=== PATIENT | male | born 1970 | race Caucasian/White ===

== ENCOUNTER 2018-12-19 06:21 | Emergency (ER) | payer MEDICAID ==
[~2018-12-19] VITALS: Ht 170.2 cm; Wt 70.0 kg
[~2018-12-19 06:21] MED LIST: CLON-412 PO; HYDR25TA6 PO; LISI40TA3 PO; OXYC-281 PO; PANT40TA3 PO
[2018-12-19 06:24] VITALS: BP 178/115; PULSE 107; RESP 20; Ht 170.2 cm; Wt 70.0 kg
[2018-12-19] MEDS ORDERED: ONDANSETRON 4 MG INJ IV STA (06:28)
[2018-12-19] MEDS ORDERED: ONDANSETRON (ODT) 4 MG TAB ODT STA (06:49)
[2018-12-19] MEDS ORDERED: HYDROCODONE/APAP (10/325) TAB PO ONE (07:00)
[2018-12-19] MEDS ORDERED: ONDA4TAB14 PO (08:07)
--- NOTE | 2018-12-19 08:08 | ERD ---
ER Documentation Chief Complaint Chief Complaint abdominal pain with nausea HPI Patient is a 48-year-old male with a history of hypertension and diverticulitis who presents with abdominal pain. He was brought in by ambulance. He admits to nausea and vomiting but no blood. Patient has had abdominal pain for the past 2 days. He feels like it in the left lower quadrant. He has bilateral feet swelling with the right being more swollen than the left. He feels like this could be previous diverticulitis. He said the pain is constant and stabbing. He has no fevers. He has diarrhea but no blood. He has had no treatment as of yet. Upon review of old medical records this is the patient's sixth visit to the ER since 2012. Review of the emergency department information exchange system shows visits to 3 separate emergency departments for a total of 10 visits over the past 1 year. He said that his primary doctor is a [facility] and he does have a GI doctor but does not remember the name. ROS All systems reviewed and are negative except as per history of present illness. Medications Home Meds Active Scripts Ondansetron (Ondansetron Odt) 4 Mg Tab.rapdis, 4 MG PO Q6H PRN for NAUSEA AND/OR VOMITING, #10 TAB Prov:JULIA SOLIS MD 12/19/18 Oxycodone Hcl-Acetaminophen* (Percocet*) 5-325 Mg Tablet, 1 TAB PO Q4H PRN for PAIN, #6 TAB Prov:NA COFFMAN MD 12/04/14 Oxycodone Hcl-Acetaminophen* (Percocet*) 5-325 Mg Tablet, 1 TAB PO Q4H PRN for PAIN, #6 TAB Prov:NA COFFMAN MD 12/04/14 Reported Medications Pantoprazole* (Protonix*) 40 Mg Tablet.dr, 40 MG PO DAILY, TAB 12/04/14 Lisinopril* (Lisinopril*) 40 Mg Tablet, 40 MG PO DAILY, TAB 12/04/14 Clonazepam* (Klonopin*) 1 Mg Tablet, 1 MG PO TID, TAB 12/04/14 Hydrochlorothiazide* (Hydrochlorothiazide*) 25 Mg Tab, 25 MG PO DAILY, TAB 08/04/14 Allergies Allergies: Coded Allergies: ketorolac tromethamine (Verified Allergy, Severe, ANAPHYLAXIS, 7/14/15) morphine (Verified Allergy, Severe, ANAPHYLAXIS, 12/04/14) PMhx/Soc History of Surgery: Yes (BOWEL RESECTION,HERNIA REPAIR,APPENDECTOMY) Anesthesia Reaction: No Hx Neurological Disorder: No Hx Respiratory Disorders: No Hx Cardiac Disorders: Yes (HTN) Hx Psychiatric Problems: No Hx Miscellaneous Medical Probl: No Hx Alcohol Use: No Hx Substance Use: No Hx Tobacco Use: Yes Smoking Status: Current every day smoker FmHx Family History: No diabetes Physical Exam Vitals Vital Signs Date Temp Pulse Resp B/P (MAP) Pulse Ox O2 O2 Flow FiO2 Time Delivery Rate 12/19/18 98.1 107 20 178/115 94 06:24 (136) Physical Exam Const: Mild distress secondary to pain Head: Atraumatic Eyes: Normal Conjunctiva ENT: Normal External Ears, Nose and Mouth. Neck: Full range of motion. No meningismus. Resp: Clear to auscultation bilaterally Cardio: Regular rate and rhythm, no murmurs Abd: Soft, lower quadrant tenderness to palpation without rebound or guarding Skin: No petechiae or rashes Back: No midline or flank tenderness Ext: 1+ pitting edema on the right no edema on the left lower extremity Neur: Awake and alert Psych: Normal Mood and Affect Result Diagram: 12/19/18 0650 12/19/18 0650 Results 24 hrs Laboratory Tests Test 12/19/18 06:50 White Blood Count 5.8 10^3/ul Red Blood Count 5.19 10^6/ul Hemoglobin 15.2 g/dl Hematocrit 46.0 % Mean Corpuscular Volume 88.6 fl Mean Corpuscular Hemoglobin 29.3 pg Mean Corpuscular Hemoglobin Concent 33.0 g/dl Red Cell Distribution Width 14.1 % Platelet Count 271 10^3/UL Mean Platelet Volume 10.7 fl Immature Granulocytes % 0.300 % Neutrophils % 65.6 % Lymphocytes % 22.5 % Monocytes % 9.6 % Eosinophils % 1.5 % Basophils % 0.5 % Nucleated Red Blood Cells % 0.0 /100WBC Immature Granulocytes # 0.020 10^3/ul Neutrophils # 3.8 10^3/ul Lymphocytes # 1.3 10^3/ul Monocytes # 0.6 10^3/ul Eosinophils # 0.1 10^3/ul Basophils # 0.0 10^3/ul Nucleated Red Blood Cells # 0.0 10^3/ul Sodium Level 144 mmol/L Potassium Level 4.0 mmol/L Chloride Level 107 mmol/L Carbon Dioxide Level 24 mmol/L Anion Gap 13 Blood Urea Nitrogen 16 mg/dl Creatinine 0.92 mg/dl Est Glomerular Filtrat Rate mL/min > 60 mL/min Glucose Level 105 mg/dl Calcium Level 10.8 mg/dl Total Bilirubin 1.1 mg/dl Direct Bilirubin 0.00 mg/dl Indirect Bilirubin 1.1 mg/dl Aspartate Amino Transf (AST/SGOT) 47 IU/L Alanine Aminotransferase (ALT/SGPT) 44 IU/L Alkaline Phosphatase 81 IU/L Troponin I 0.043 ng/ml Total Protein 8.2 g/dl Albumin 4.5 g/dl Globulin 3.70 g/dl Albumin/Globulin Ratio 1.21 Lipase 20 U/L Current Medications Medications Dose Sig/Castillo Start Time Status Last (Trade) Ordered Route PRN Stop Time Admin Dose Reason Admin Ondansetron 4 mg ONCE STAT 12/19/18 DC HCl (Zofran IV 06:28 Inj) 12/19/18 06:29 1 tab ONCE ONCE 12/19/18 DC Acetaminophen PO 07:00 / 12/19/18 07:01 Hydrocodone Bitart (Bryant (10)) Ondansetron 4 mg ONCE STAT 12/19/18 DC 12/19/18 HCl (Zofran ODT 06:49 06:57 Odt) 12/19/18 06:50 Procedures/MDM EKG read by me: Rate/Rhythm: Sinus tachycardia rate of 106 Intervals: Normal Impression: Tachycardia without ischemia Ultrasound of the right lower extremity negative for DVT per radiology. CT scan of the abdomen pelvis shows no surgical process per radiology. Chest x-ray negative per radiology. Smoking Cessation Therapy: Pt. was lectured for greater than 3 minutes on the health risks of continued smoking and the benefits of cessation. Patient is a 48-year-old male who presents with acute on chronic abdominal pain. He also has nausea and vomiting. He said he was allergic to Toradol and morphine but did request Dilaudid. I told him that per our chronic pain policy I would not give him IV Dilaudid and he became upset. He said that Bryant would not work for him. Laboratory studies were normal. EKG shows no signs of ischemia. Ultrasound was negative for DVT. CT scan of the abdomen pelvis shows no signs of diverticulitis or obstruction. Chest x-ray shows no signs of pulmonary edema. At this point I doubt appendicitis, cholecystitis, pancreatiti s, or bowel obstruction. I doubt diverticulitis. The patient will be discharged will need to follow-up with his primary doctor at [facility] within 24 to 48 hours for reevaluation. He can return sooner for any worsening symptoms. I do believe there may be an element of drug-seeking behavior and I will not give him any prescriptions for narcotic medicines. He will be given a prescription for Zofran. Patient was provided with copies of laboratory studies and imaging test results prior to discharge. Departure Diagnosis: Primary Impression: Abdominal pain Abdominal location: left lower quadrant Qualified Codes: R10.32 - Left lower quadrant pain Condition: Fair Patient Instructions: Abdominal Pain Referrals: Your doctor at [facility] Additional Instructions: Call your primary care doctor TOMORROW for an appointment during the next 1-2 days.See the doctor sooner or return here if your condition worsens before your appointment time. JULIA SOLIS MD Dec 19, 2018 08:08
[2018-12-21] MEDS ORDERED: POLY17PO6 PO (23:45)
== END 2018-12-19 09:29 | disposition home or self-care (01) ==
LOC: E/R 06:21
DX: R10.32 Left lower quadrant pain (principal); I10 Essential (primary) hypertension; F17.210 Nicotine dependence, cigarettes, uncomplicated; R11.0 Nausea
CPT/HCPCS: 71045; 74176; 80053; 83690; 84484; 85025; 93005; 93971; Z7610; 36415

== ENCOUNTER 2018-12-20 06:29 | Emergency (ER) | payer MEDICAID, OTHER ==
[~2018-12-20] VITALS: Ht 170.2 cm; Wt 80.0 kg
[~2018-12-20 06:29] MED LIST changes: +ONDA4TAB14 PO; +POLY17PO6 PO
[2018-12-20 06:32] VITALS: Ht 170.2 cm; Wt 80.0 kg
[2018-12-20] MEDS ORDERED: LORAZEPAM 1 MG TAB PO ONE (07:00)
[2018-12-20 08:40] VITALS: BP 120/78; PULSE 84; RESP 18
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
== END 2018-12-20 09:32 | disposition home or self-care (01) ==
LOC: E/R 06:29
DX: F15.10 Other stimulant abuse, uncomplicated (principal); I10 Essential (primary) hypertension; R40.2142 Coma scale, eyes open, spontaneous, at arrival to emergency department; R40.2362 Coma scale, best motor response, obeys commands, at arrival to emergency department; Z87.891 Personal history of nicotine dependence
CPT/HCPCS: 99283

== ENCOUNTER 2018-12-20 11:32 | Emergency (ER) | payer MEDICAID, OTHER ==
[~2018-12-20] VITALS: Ht 157.5 cm; Wt 63.7 kg
[2018-12-20 11:42] VITALS: BP 135/62; PULSE 103; RESP 18; Ht 157.5 cm; Wt 63.7 kg
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
== END 2018-12-20 13:19 | disposition home or self-care (01) ==
LOC: E/R 11:32
DX: F15.10 Other stimulant abuse, uncomplicated (principal); I10 Essential (primary) hypertension; Z87.891 Personal history of nicotine dependence
CPT/HCPCS: 99283

== ENCOUNTER 2018-12-21 20:20 | Emergency (ER) | payer MEDICAID, OTHER ==
[~2018-12-21] VITALS: Ht 162.6 cm; Wt 65.0 kg
[2018-12-21 20:30] VITALS: Ht 162.6 cm; Wt 65.0 kg
[2018-12-21] MEDS ORDERED: ONDANSETRON (ODT) 4 MG TAB ODT STA (22:58)
[2018-12-21] MEDS ORDERED: BELLADONNA/PHENOBARBITAL TAB PO STA (22:58)
[2018-12-21] MEDS ORDERED: LIDOCAINE/MYLANTA 40 ML BTL PO STA (22:58)
[2018-12-21] MEDS ORDERED: FAMOTIDINE 20 MG TAB PO STA (22:58)
[2018-12-21] MEDS ORDERED: DICYCLOMINE 20 MG INJ IM ONE (23:00)
--- NOTE | 2018-12-21 23:44 | ERD ---
ER Documentation Chief Complaint Chief Complaint bib ra 81 c/o on and off abd pain x 1 month HPI This is a 48-year-old male with a past medical history of methamphetamine abuse, chronic abdominal pain, diverticulosis with diverticulitis, 3 previous emergency department visits for similar abdominal pain with negative work-ups, now presenting with another exacerbated episode of moderate general cramping aching abdominal pain with nausea. The patient reports that his symptoms have been ongoing for a month. The patient does not endorse any alleviating or exacerbating factors. He does not know if it is associated with food or not. He does not endorse constipation or diarrhea. He does not endorse black or bloody or tarry stools. He does not endorse dysuria or hematuria or urgency or frequency. The patient has not vomited today. The patient denies fever or chills. The patient has had no headache or vision changes. The patient does not endorse neck or back pain. The patient denies lightheadedness or dizziness. The patient has had no chest pain or trouble breathing. The patient has had no focal deficits. The patient has had no weakness or numbness or tingling to the face or extremities. ROS All systems reviewed and are negative except as per history of present illness. Medications Home Meds Active Scripts Ondansetron (Ondansetron Odt) 4 Mg Tab.rapdis, 4 MG PO Q6H PRN for NAUSEA AND/OR VOMITING, #10 TAB Prov:JULIA SOLIS MD 12/19/18 Oxycodone Hcl-Acetaminophen* (Percocet*) 5-325 Mg Tablet, 1 TAB PO Q4H PRN for PAIN, #6 TAB Prov:NA COFFMAN MD 12/04/14 Oxycodone Hcl-Acetaminophen* (Percocet*) 5-325 Mg Tablet, 1 TAB PO Q4H PRN for PAIN, #6 TAB Prov:NA COFFMAN MD 12/04/14 Reported Medications Pantoprazole* (Protonix*) 40 Mg Tablet.dr, 40 MG PO DAILY, TAB 12/04/14 Lisinopril* (Lisinopril*) 40 Mg Tablet, 40 MG PO DAILY, TAB 12/04/14 Clonazepam* (Klonopin*) 1 Mg Tablet, 1 MG PO TID, TAB 12/04/14 Hydrochlorothiazide* (Hydrochlorothiazide*) 25 Mg Tab, 25 MG PO DAILY, TAB 08/04/14 Allergies Allergies: Coded Allergies: ketorolac tromethamine (Verified Allergy, Severe, ANAPHYLAXIS, 12/04/14) morphine (Verified Allergy, Severe, ANAPHYLAXIS, 12/04/14) PMhx/Soc History of Surgery: Yes (BOWEL RESECTION,HERNIA REPAIR,APPENDECTOMY) Anesthesia Reaction: No Hx Neurological Disorder: No Hx Respiratory Disorders: No Hx Cardiac Disorders: Yes (HTN) Hx Psychiatric Problems: No Hx Miscellaneous Medical Probl: No Hx Alcohol Use: No Hx Substance Use: No Hx Tobacco Use: Yes Smoking Status: Current every day smoker FmHx Family History: No diabetes Physical Exam Vitals Vital Signs Date Temp Pulse Resp B/P (MAP) Pulse Ox O2 O2 Flow FiO2 Time Delivery Rate 12/21/18 99.2 98 18 146/101 96 23:08 (116) 12/21/18 99.2 71 18 143/94 96 20:30 (110) Physical Exam Const: No acute distress Head: Atraumatic Eyes: Normal Conjunctiva ENT: Normal External Ears, Nose. Dry mucous membranes. Neck: Full range of motion. No meningismus. Resp: Clear to auscultation bilaterally Cardio: Regular rate and rhythm, no murmurs Abd: Soft, non distended. Left lower quadrant tenderness, mild. No guarding or rebound. Normal bowel sounds Skin: No petechiae or rashes Back: No midline or flank tenderness Ext: No cyanosis, or edema Neur: Awake and alert Psych: Anxious Results 24 hrs Current Medications Medications Dose Sig/Castillo Start Time Status Last (Trade) Ordered Route PRN Stop Time Admin Dose Reason Admin Famotidine 20 mg ONCE STAT 12/21/18 DC 12/21/18 (Pepcid) PO 22:58 23:04 12/21/18 23:00 40 ml ONCE STAT 12/21/18 DC 12/21/18 Miscellaneous PO 22:58 23:04 Medication 12/21/18 23:00 (Gi Cocktail (2)) Belladonna/ 2 tab ONCE STAT 12/21/18 DC 12/21/18 Phenobarbital PO 22:58 23:04 () 12/21/18 23:00 Dicyclomine 10 mg ONCE ONCE 12/21/18 DC HCl IM 23:00 (Bentyl) 12/21/18 23:01 Ondansetron 8 mg ONCE STAT 12/21/18 DC 12/21/18 HCl (Zofran ODT 22:58 23:06 Odt) 12/21/18 23:01 Procedures/[facility] MDM Previous medical records, if available, were reviewed. LABS The patient's laboratory testing reviewed from 12/19/2018. No emergent treatment was required unless described below. CBC: No E/o systemic infection or severe anemia or thrombocytopenia Chemistry: No E/o severe acidosis or alkalosis or renal failure or liver disease or diabetic ketoacidosis Lipase: No E/o pancreatitis Troponin: No E/o acute ischemia EKG EKG from 12/19/2018 reviewed by me: Rate/Rhythm: Sinus tachycardia at 106 bpm Intervals: Normal [place]: Normal Impression: No evidence of acute ischemia. This tachycardia IMAGING Imaging and Radiology interpretation reviewed from 12/19/2018. CXR FINDINGS: The patient is mildly tilted to the left. The cardiomediastinal silhouette is within normal limits. There is no evidence for an infiltrate. There is no evidence for congestive heart failure. There is no evidence for pneumothorax. There are old right posterior fifth, sixth and seventh rib fracture deformities. IMPRESSION: 1. No evidence for active cardiopulmonary disease. 2. Old posterior right rib fracture deformities. Electronically viewed and signed by Dom Newman MD, MD on 12/19/2018 08:02 US BLE FINDINGS: There is normal compressibility and flow within the right common femoral, deep femoral, superficial femoral, popliteal, posterior tibial and peroneal veins. IMPRESSION: No sonographic evidence for right lower extremity deep venous thrombosis. Electronically viewed and signed by .Dom Newmna MD, MD on 12/19/2018 07:40 CT Abd/Pelvis FINDINGS: There are minimal focal blebs and scarring within the right lung base without interval change. There is no evidence for significant pleural effusion. The liver has a normal size and contour. There is a small punctate hepatic calcification within the posterior segment right lobe on axial image 3-47. No intrahepatic nor extrahepatic biliary ductal dilatation is seen. The gallbladder demonstrates no wall thickening nor pericholecystic fluid. No biliary stones are evident. The pancreas is without areas of abnormal attenuation. The spleen is identified and has a normal size without abnormal density. The adrenal glands are unremarkable. The right kidney is markedly atrophic as previously identified. The left kidney is without abnormal density, calculi or obstruction. No hydroureteronephrosis nor nephroureterolithiasis is evident. The urinary bladder contains urine. There is a mesh identified within the ventral abdominal wall from prior hernia repair. An anastomotic teri are seen within the sigmoid colon region from prior resection. There is mild retained stool identified throughout the colon without evidence for bowel obstruction. The appendix is visualized and is without abnormal thickening or surrounding inflammatory reaction. The prostate is not enlarged. There is no significant free fluid. The aortoiliac vessels are without aneurysmal dilatation. The osseous structures are intact. IMPRESSION: 1. Prior sigmoid resection with retained stool throughout the colon without obstruction. 2. Ventral abdominal wall mesh from prior hernia repair. 3. No CT evidence for appendicitis. 4. Atrophic right kidney. Electronically viewed and signed by .Dom Newman MD, MD on 12/19/2018 08:01 TREATMENT/DISPOSITION The patient presents for chronic abdominal pain. The patient does not have any evidence of peritonitis. The patient does not have clinical symptoms concerning for mesenteric ischemia or ischemic colitis. I do not suspect viscus perforation. The patient has a history of diverticulosis and diverticulitis but based on the CT findings from 2 days ago, the patient does have a sigmoid resection. There is evidence of constipation, which could be the etiology of his symptoms. The patient does not have right upper quadrant tenderness, and I have low suspicion for gallstones, cholecystitis or biliary colic. The patient does not have any epigastric pain. I have low suspicion for gastritis, PUD or GERD. The patient does not have left upper quadrant tenderness. I have low suspicion for pancreatitis. The patient does not have any right lower quadrant tenderness, or periumbilical tenderness. I have low suspicion for appendicitis. The patient does not have suprapubic tenderness. I have decreased suspicion for cystitis. The patient does not have any flank tenderness. The patient does not have gross hematuria. I have decreased suspicion for nephrolithiasis or renal colic. The patient does not have any palpable pulsatile mass or severe abdominal pain radiating to the back. I have low suspicion for aortic aneurysm, dissection or rupture. I do not feel that repeat diagnostic imaging is warranted at this time. The patient was treated with Pepcid, a GI cocktail, Bentyl and Zofran. I do not feel that opiate medications are warranted and chronic abdominal pain given the concern for gastroparesis and worsening constipation. DISCHARGE Upon reevaluation of the patient, symptoms have improved. No emergent diagnoses were identified. At this time, I feel that the patient stable for discharge. The patient was instructed to follow-up with a primary care physician as soon as possible. The patient will be given strict precautions with which to return to the emergency department. The patient is homeless. The patient was provided homeless resources in accordance with her homeless policy. He is otherwise medically stable for transfer. Prescriptions: Miralax The patient's blood pressure was elevated at greater than 120/80 while in the emergency department. The patient was otherwise stable with no evidence of hypertensive urgency or emergency. The patient does not require admission for blood pressure control. I have discussed with the patient the risks of hypertension. I have instructed the patient to return to the ER for any new or worsening symptoms including chest pain, shortness of breath, headache, blurred vision, confusion, nausea, vomiting or LOC. I have advised the patient to follow up with the primary care physician for outpatient monitoring and treatment for hypertension in 1-3 days. DISCLAIMER Inadvertent spelling and grammatical errors are likely due to EHR/dictation software use and do not reflect on the overall quality of patient care. Note that the electronic time recorded on this note does not necessarily reflect the actual time of the patient encounter. Departure Diagnosis: Primary Impression: Chronic abdominal pain Additional Impressions: Constipation Constipation type: unspecified constipation type Qualified Codes: K59.00 - Constipation, unspecified History of substance abuse Homelessness Condition: Stable Patient Instructions: Abdominal Pain, Constipation (Adult), Nausea Additional Instructions: Thank you for for coming to [facility] for your care today. Please ask your nurse or provider if you have questions about your care today and do not leave until all your questions have been answered. Please use any medications given as directed and follow-up with your doctor (or the doctor you were referred to) in the next 1-3 days. If you do not have a primary care doctor you may follow up at the [facility] (listed below). You may also use motrin and tylenol as needed for fever and/or pain unless instructed otherwise by your provider or nurse. Indications for more urgent follow-up have been discussed, but you may return to the Emergency Department at ANY time for any worrisome or worsening symptoms. If you have abdominal pain, please know that no test or exam you received is per fect and you should follow up within 8 hours for continued pain. If you had any imaging studies today, such as an X-Ray or CT Scan, these studies will be reviewed later by a radiologist. You will be called if there are important findings that were not identified today, so make sure the contact information you provided at registration is correct. If you received any narcotic pain control medicine today, such as Vicodin, Morphine or Dilaudid, your coordination and judgment may be affected for a number of hours. Please do not drive or operate heavy machinery, and you may want someone to assist you at home. If you were given a prescription for narcotic medication, be aware that it is very addictive- use sparingly and only if necessary. PLEASE SEEK FURTHER EVALUATION AND MANAGEMENT AT YOUR DOCTORS OFFICE WITHIN THE NEXT 1-3 DAYS. IT IS YOUR RESPONSIBILITY TO MAKE AN APPOINTMENT FOR FOLOW-UP CARE. IF YOU HAVE A PRIMARY DOCTOR, PLEASE CALL THEIR OFFICE TO SCHEDULE AN APPOINTMENT FOR FOLLOW UP. IF YOU DO NOT HAVE A PRIMARY DOCTOR YOU CAN CALL OUR PHYSICIAN REFERRAL HOTLINE AT IF YOU CAN NOT AFFORD TO SEE A PHYSICIAN YOU CAN CHOSE FROM THE FOLLOWING [facility] CLINICS: [facility] [address] [facility]. [facility] [address] [facility] [facility] [address] [facility]. [facility] [address] [facility]. [facility] [address] [facility]. [facility]. [address] MICHAEL MENESES MD Dec 21, 2018 23:44
[2018-12-22 00:05] VITALS: BP 140/81; PULSE 79; RESP 18
== END 2018-12-22 00:06 | disposition home or self-care (01) ==
LOC: E/R 20:20
DX: K59.00 Constipation, unspecified (principal); I10 Essential (primary) hypertension; F17.210 Nicotine dependence, cigarettes, uncomplicated; R40.2140 Coma scale, eyes open, spontaneous, unspecified time; R40.2252 Coma scale, best verbal response, oriented, at arrival to emergency department; R40.2362 Coma scale, best motor response, obeys commands, at arrival to emergency department; Z59.0 Homelessness; Z86.59 Personal history of other mental and behavioral disorders
CPT/HCPCS: 96372; J0500; Z7502; Z7610

== ENCOUNTER 2018-12-22 00:57 | Emergency (ER) | payer MEDICAID, OTHER ==
[~2018-12-22] VITALS: Ht 162.6 cm; Wt 64.8 kg
[2018-12-22 01:20] VITALS: Ht 162.6 cm; Wt 64.8 kg
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
[2018-12-22] MEDS ORDERED: OLANZAPINE (ODT) 5 MG TAB ODT ONE (07:00)
[2018-12-22] MEDS ORDERED: LORAZEPAM 1 MG TAB PO ONE ×2 (08:30→20:30)
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
[2018-12-22] MEDS ORDERED: ARIPIPRAZOLE 5 MG TAB PO SCH (13:30)
[2018-12-22 23:39] VITALS: BP 156/100; PULSE 89; RESP 16
== END 2018-12-22 23:40 | disposition home or self-care (01) ==
LOC: E/R 00:57
DX: R45.851 Suicidal ideations (principal); I10 Essential (primary) hypertension; Z76.5 Malingerer [conscious simulation]
CPT/HCPCS: 36415; 80053; 80307; 85025; Z7502; Z7610; 99285